=== PATIENT | male | born 1960 | race Caucasian/White ===

== ENCOUNTER 2019-02-14 08:55 | Outpatient (CLI) | payer OTHER, SELFPAY ==
--- NOTE | 2019-02-14 11:31 | CT ---
HEAD CT WITH AND WITHOUT CONTRAST: Date: 02/14/19 COMPARISON: None. HISTORY: Right renal cancer with metastatic disease to the lungs. TECHNIQUE: Axial CT imaging obtained at 5 mm intervals from the vertex through the skull base with and without I V contrast. FINDINGS: The imaged paranasal sinuses and mastoid air cells are well aerated. There is no displaced calvarial fracture. No suspicious lytic or blastic bone lesion is evident. Noncontrast enhanced imaging demonstrates no intracranial hemorrhage, midline shift, or mass effect. There is multifocal periventricular, deep, and subcortical white matter hypodensity, which suggests s mall vessel disease. Postcontrast imaging demonstrates no evidence for abnormal enhancement. IMPRESSION: Small vessel disease. No evidence for intracranial hemorrhage or enhancing mass lesion. POS: OFF
[2019-02-14] MEDS ORDERED: Iopamidol 370 76% 100 ML VIAL ONE (12:46)
--- NOTE | 2019-02-14 13:49 | NM ---
NUCLEAR MEDICINE BONE SCAN WHOLE BODY: (Skeletal scintigraphy) DATE: 02/14/2019 HISTORY: 58-year-old male with renal cell carcinoma. TECHNIQUE: IV injection of technetium 99m-MDP: 32 mCi 3 hour delayed whole body skeletal scintigraphy in anterior and posterior views. FINDINGS: There are no foci of asymmetrically increased uptake that are particularly suspicious for bone metast ases. IMPRESSION: No compelling evidence of skeletal metastasis.
== END 2019-02-14 08:56 | disposition home or self-care (01) ==
LOC: CT 08:55
PROVIDERS: ATTEND Internal Medicine Hematology & Oncology
DX: C64.1 Malignant neoplasm of right kidney, except renal pelvis (principal); R91.1 Solitary pulmonary nodule; G93.89 Other specified disorders of brain
CPT/HCPCS: 70470; 78306; 82565; A9503

== ENCOUNTER 2019-03-17 12:55 | Day surgery (SDC) | payer OTHER ==
[~2019-03-17 12:55] MED LIST: Pembrolizumab 200 MG in Sodium Chloride 0.9% 250 ML 250 ML IV SCH
[2019-03-17 15:02] VITALS: BP 131/78; TEMP 97.8
== END 2019-03-17 15:10 | disposition home or self-care (01) ==
LOC: ONC/OP 12:55
PROVIDERS: ATTEND Internal Medicine Hematology & Oncology
DX: Z51.11 Encounter for antineoplastic chemotherapy (principal); C64.1 Malignant neoplasm of right kidney, except renal pelvis
CPT/HCPCS: 96413; J7050; J9271

== ENCOUNTER 2019-04-07 12:51 | Day surgery (SDC) | payer OTHER ==
[2019-04-07] MEDS ORDERED: Sodium Chloride 0.9% 20 ML ONE (13:07)
[2019-04-07 13:30] VITALS: BP 146/74
== END 2019-04-07 14:58 | disposition home or self-care (01) ==
LOC: ONC/OP 12:51
PROVIDERS: ATTEND Internal Medicine Hematology & Oncology
DX: Z51.12 Encounter for antineoplastic immunotherapy (principal); C64.1 Malignant neoplasm of right kidney, except renal pelvis
CPT/HCPCS: 96413

== ENCOUNTER 2019-04-28 10:22 | Day surgery (SDC) | payer OTHER ==
[2019-04-28] MEDS ORDERED: Sodium Chloride 0.9% 20 ML ONE (10:28)
[2019-04-28 10:36] VITALS: BP 164/91; TEMP 97.9
== END 2019-04-28 11:52 | disposition home or self-care (01) ==
LOC: ONC/OP 10:22
PROVIDERS: ATTEND Internal Medicine Hematology & Oncology
DX: Z51.12 Encounter for antineoplastic immunotherapy (principal); C64.1 Malignant neoplasm of right kidney, except renal pelvis
CPT/HCPCS: 96413

== ENCOUNTER 2019-05-19 11:17 | Day surgery (SDC) | payer OTHER ==
[2019-05-19] MEDS ORDERED: Sodium Chloride 0.9% 20 ML ONE (13:12)
== END 2019-05-19 13:14 | disposition home or self-care (01) ==
LOC: ONC/OP 11:17
PROVIDERS: ATTEND Internal Medicine Hematology & Oncology
DX: Z51.12 Encounter for antineoplastic immunotherapy (principal); C64.1 Malignant neoplasm of right kidney, except renal pelvis
CPT/HCPCS: 96413

== ENCOUNTER 2019-06-13 10:41 | Day surgery (SDC) | payer OTHER ==
[2019-06-13 11:06] VITALS: BP 160/94; TEMP 97.9
== END 2019-06-13 11:50 | disposition home or self-care (01) ==
LOC: ONC/OP 10:41
PROVIDERS: ATTEND Internal Medicine Hematology & Oncology
DX: Z51.12 Encounter for antineoplastic immunotherapy (principal); C64.1 Malignant neoplasm of right kidney, except renal pelvis
CPT/HCPCS: 96413

== ENCOUNTER 2019-06-30 07:59 | Outpatient (CLI) | payer OTHER ==
--- NOTE | 2019-06-30 09:45 | CT ---
EXAM: CT of the chest with contrast CT of the abdomen and pelvis with contrast HISTORY: Renal cell cancer with metastases to the lungs COMPARISON: 01/21/2019 TECHNIQUE: 1. Multiple contiguous axial images were obtained in a CT the chest with contrast. Coronal and sagitt al reformats were performed. 2. Multiple contiguous axial images were obtained and a CT of the abdomen and pelvis with contrast. C oronal and sagittal reformats were performed. FINDINGS: CT CHEST: HEART: Normal in size without focal cardiac abnormality. Calcifications in the coronary arteries. MEDIASTINUM: No hilar or mediastinal lymphadenopathy. LUNGS: No focal infiltrates, nodules, or masses. PLEURAL SPACE: No pneumothorax or pleural effusion. CHEST WALL SOFT TISSUES: Unremarkable CT ABDOMEN/PELVIS: ABDOMEN: LIVER: within normal limits. BILE DUCTS: Normal caliber. GALLBLADDER: No calcified gallstones. Normal caliber wall. PANCREAS: within normal limits. SPLEEN: within normal limits. ADRENALS: within normal limits. KIDNEYS: There is 11.4 cm mixed solid/cystic renal mass involving the lower pole the right kidney. Th is mass is smaller than on the prior examination and is more cystic than on the prior examination. No thrombus is seen in the right renal vein. This mass abuts the right psoas muscle and there is loss of fat plane between the mass and the psoas muscle. There are minimal varices along the medial and inferior aspect of the mass. These have significantly improved compared to the prior examination. PELVIS: REPRODUCTIVE ORGANS: No pelvic masses. URETERS: within normal limits. BLADDER: within normal limits. PERITONEUM: No ascites or free air, no fluid collection. BOWEL: Normal caliber. Normal appendix. Scattered diverticula in the colon. MESENTERY AND RETROPERITONEUM: No enlarged mesenteric or retroperitoneal lymph nodes. VESSELS: Atherosclerotic calcifications. ABDOMINAL WALL: within normal limits. OSSEOUS STRUCTURES: Degenerative changes in the spine. No suspicious lytic lesions are seen. IMPRESSION: 1. Large right renal mass is consistent with a renal cell carcinoma. This appears smaller and more cy stic than on the prior examination and the varices surrounding the mass have significantly improved. 2. Diverticulosis 3. Resolution of pulmonary nodules.
[2019-06-30] MEDS ORDERED: Iopamidol-370 76% 500 ML 1 ML ONE (13:12)
== END 2019-06-30 08:00 | disposition home or self-care (01) ==
LOC: BICCT 07:59
PROVIDERS: ATTEND Internal Medicine Hematology & Oncology
DX: C64.1 Malignant neoplasm of right kidney, except renal pelvis (principal); N28.89 Other specified disorders of kidney and ureter; K57.30 Diverticulosis of large intestine without perforation or abscess without bleeding; R91.8 Other nonspecific abnormal finding of lung field; I86.8 Varicose veins of other specified sites
CPT/HCPCS: 71260; 74177; Q9967

== ENCOUNTER 2019-07-07 12:44 | Day surgery (SDC) | payer OTHER ==
[2019-07-07] MEDS ORDERED: Sodium Chloride 0.9% 20 ML ONE (12:47)
[2019-07-07 14:08] VITALS: BP 144/89; TEMP 97.8
== END 2019-07-07 14:11 | disposition home or self-care (01) ==
LOC: ONC/OP 12:44
PROVIDERS: ATTEND Internal Medicine Hematology & Oncology
DX: Z51.12 Encounter for antineoplastic immunotherapy (principal); C64.1 Malignant neoplasm of right kidney, except renal pelvis
CPT/HCPCS: 96413

== ENCOUNTER 2019-07-28 12:53 | Day surgery (SDC) | payer OTHER ==
[2019-07-28 14:23] VITALS: BP 149/83; TEMP 97.5
== END 2019-07-28 14:58 | disposition home or self-care (01) ==
LOC: ONC/OP 12:53
PROVIDERS: ATTEND Internal Medicine Hematology & Oncology
DX: Z51.12 Encounter for antineoplastic immunotherapy (principal); C64.1 Malignant neoplasm of right kidney, except renal pelvis
CPT/HCPCS: 96413

== ENCOUNTER 2019-07-29 06:07 | Outpatient (CLI) | payer SELFPAY ==
--- NOTE | 2019-07-29 17:05 | EKG ---
Test Reason : Blood Pressure : / mmHG Vent. Rate : 067 BPM Atrial Rate : 067 BPM P-R Int : 160 ms QRS Dur : 104 ms QT Int : 384 ms P-R-T Axes : 055 048 046 degrees QTc Int : 405 ms Normal sinus rhythm Possible Anterior infarct , age undetermined Abnormal ECG When compared with ECG of 20-NOV-2005 14:57, Borderline criteria for Anterior infarct are now Present Non-specific change in ST segment in Inferior leads Confirmed by DR. Sly VALLECILLO (3) on 07/29/2019 5:04:43 PM Referred By: KRYSTIAN Confirmed By:DR. Sly VALLECILLO
== END 2019-07-29 06:08 | disposition home or self-care (01) ==
LOC: LABBT 06:07
PROVIDERS: ATTEND Urology
DX: Z01.818 Encounter for other preprocedural examination (principal); D49.511 Neoplasm of unspecified behavior of right kidney
CPT/HCPCS: 93005; 93010

== ENCOUNTER 2019-07-29 09:00 | Inpatient (IN) | payer OTHER, SELFPAY ==
[2019-07-29 09:48] VITALS: BMI 26.6
[2019-07-29 10:31] LABS: Mean Corpuscular HGB CONC 35.5 g/dL (32.0-36.0); Mean Corpuscular Hemoglobin 31.8 pg (27.0-31.0); Mean Corpuscular Volume 89.4 fL (78.0-98.0); Mean Platelet Volume 6.6 fL (7.4-10.4); Platelet Count 245 thou/uL (130-400); RBC Distribution Width 12.8 % (11.5-14.5); Red Blood Cell (RBC) Count 5.66 mill/uL (4.70-6.10); White Blood Cell (WBC) Count 5.8 thou/uL (4.8-10.8)
[2019-07-29 10:38] LABS: INR-International Normal Ratio 0.9; PTT 24.8 SEC (22.9-36.1); Prothrombin Time 12.1 SEC (12.0-14.7)
[2019-07-29 10:41] LABS: Bacteria/HPF None Seen HPF (None Seen); Bilirubin Negative (Negative); Blood, Urine Negative (Negative); Clarity Clear (Clear); Glucose, Urine (Dipstick) 70 mg/dL (Negative); Leukocyte Negative Leu/uL (Negative); Nitrite Negative (Negative); Protein, Urine (Dipstick) Negative (Neg-Trace); RBC/HPF 0-3 HPF (0-3); Squamous Epithelial None Seen HPF (0-3); Urobilinogen Normal mg/dL (Less than 2); WBC/HPF None Seen HPF (0-3)
[2019-07-29 10:52] LABS: Anion Gap 13 mmol/L (10-20); BUN (Urea Nitrogen) 16 mg/dL (8.4-25.7); Calc. Creatinine Clearance 0 mL/min (70-130); Calcium 10.4 mg/dL (7.8-10.44); Carbon Dioxide 31 mmol/L (23-31); Chloride 97 mmol/L (98-107); Estimated GFR-MDRD 69; Glucose 117 mg/dL (80-115); Potassium 4.5 mmol/L (3.5-5.1); Sodium 136 mmol/L (136-145)
[2019-08-05] MEDS ORDERED: Midazolam HCl 2 mg/2 ml Vial ONE (06:32)
[2019-08-05] MEDS ORDERED: Fentanyl 100 MCG/2 ML VIAL ONE ×3 (06:33→10:30)
[2019-08-05] MEDS ORDERED: Acetaminophen 325 MG TAB PO PRN (07:26)
[2019-08-05] MEDS ORDERED: diphenhydrAMINE 25 MG CAP PO PRN ×2 (07:30→08:57)
[2019-08-05] MEDS ORDERED: HYDROcodone/Acetaminophen 5/325 mg Tablet PO PRN ×2 (07:30)
[2019-08-05] MEDS ORDERED: Promethazine HCl 25 MG/ML VIAL IM PRN ×4 (07:30→17:08)
[2019-08-05] MEDS ORDERED: Bupivacaine 0.25% 10 ML VIAL EPIDURAL PRN ×2 (07:30→08:57)
[2019-08-05] MEDS ORDERED: diphenhydrAMINE 50 MG/ML VIAL IVP PRN ×4 (07:30→17:08)
[2019-08-05] MEDS ORDERED: fentaNYL Citrate/PF 500 MCG, Bupivacaine 10 ML in Sodium Chloride 0.9% 80 ML EPIDURAL SCH (07:30)
[2019-08-05] MEDS ORDERED: Zolpidem Tartrate 5 MG TAB PO PRN ×4 (07:30→17:08)
[2019-08-05] MEDS ORDERED: Hydrocerin (Eucerin) Cream 120 gm Jar TOP PRN (07:30)
[2019-08-05] MEDS ORDERED: Promethazine HCl 25 MG SUPP PR PRN ×2 (07:30→08:57)
[2019-08-05] MEDS ORDERED: Naloxone HCl 0.4 mg/ml Vial IV PRN ×2 (07:30→17:08)
[2019-08-05] MEDS ORDERED: Ondansetron PF 4 MG/2 ML Vial IVP PRN ×3 (07:30→17:08)
[2019-08-05] MEDS ORDERED: diphenhydrAMINE 50 MG/ML VIAL IM PRN ×3 (07:30→17:08)
[2019-08-05] MEDS ORDERED: Ketorolac Tromethamine 30 MG/ML VIAL IVP PRN ×2 (07:30)
[2019-08-05] MEDS ORDERED: traMADol HCl 50 MG TAB PO PRN ×2 (07:30)
[2019-08-05] MEDS ORDERED: Naloxone HCl 0.4 mg/ml Vial IVP PRN ×3 (07:30→08:57)
[2019-08-05] MEDS ORDERED: Phenylephrine 10 MG/ML VIAL ONE (07:40)
[2019-08-05] MEDS ORDERED: HYDROmorphone 2 MG/ML VIAL ONE (08:32)
[2019-08-05] MEDS ORDERED: HYDROmorphone 2 MG/ML VIAL SLOW IVP PRN (08:56)
[2019-08-05] MEDS ORDERED: Promethazine HCl 25 MG/ML VIAL SLOW IVP PRN (08:56)
[2019-08-05] MEDS ORDERED: Meperidine HCl/PF 25 MG/ML VIAL SLOW IVP PRN (08:56)
[2019-08-05] MEDS ORDERED: Ondansetron HCl/PF 4 MG/2 ML Vial IVP PRN (08:56)
[2019-08-05] MEDS ORDERED: Fentanyl 5 mcg/Bupivacaine 0.075% Cassette 100 ML EPIDURAL SCH (09:00)
[2019-08-05] MEDS ORDERED: Communication Order-Pharmacy FS SCH ×3 (09:00→17:15)
[2019-08-05] MEDS ORDERED: Promethazine HCl 25 MG/ML VIAL ONE (10:36)
[2019-08-05] MEDS ORDERED: Ondansetron PF 4 MG/2 ML Vial ONE (10:41)
[2019-08-05] MEDS ORDERED: Lidocaine 1.5% w/Epi 1:200K 30 ML VIAL (Epid Use) ONE (10:41)
[2019-08-05] MEDS ORDERED: PROPOFOL 200 MG/20 ML VIAL ONE (10:41)
[2019-08-05] MEDS ORDERED: Rocuronium Bromide 10 MG/ML (10ML VIAL) ONE (10:41)
[2019-08-05] MEDS ORDERED: Glycopyrrolate 0.2 MG/ML 5 ML SYRINGE ONE (10:41)
[2019-08-05] MEDS ORDERED: Esmolol 100 MG/10 ML VIAL ONE (10:41)
[2019-08-05] MEDS ORDERED: Lidocaine 1% PF 5 ML VIAL ONE (10:41)
--- NOTE | 2019-08-05 10:43 | OP ---
DATE OF PROCEDURE: 08/05/2019 PREOPERATIVE DIAGNOSIS: Right renal mass. POSTOPERATIVE DIAGNOSIS: Right renal mass. PROCEDURE PERFORMED: Right radical nephrectomy. EDUCATION ADVISER SURGEON: Morgan San MD ANESTHESIA: General, epidural. ESTIMATED BLOOD LOSS: 500 mL. COMPLICATIONS: None. SPECIMEN: Right kidney with Gerota's fascia. DESCRIPTION OF PROCEDURE: After informed consent, the patient was taken to the operating room, transferred to the table on his own power. Anesthesia was established. A time-out was performed showing the correct patient, site, and procedure. Preoperative antibiotics were administered. Imaging was pulled up on the monitor. He was prepped and draped in the supine position. A midline incision was made from about 2 inches below the xiphoid process, 2 inches above the pubic symphysis. This was carried down to fascia with electrocautery. The fascia was then carefully entered and opened for the length of the incision. The abdominal cavity was inspected noting no obvious abnormalities and no injuries to organs. The line of Toldt was taken down on the right side and the small and large bowel deflected medially. The Bookwalter was deployed to assist with deflection. The lower pole of the right kidney was identified and isolated. The posterior plane along the psoas muscle was developed and then the ligature was used to come across the gonadal vein and ureter. The patient also had several large parasitic vessels, which were controlled with the LigaSure device. At this point, the lower pole was free. I then turned my attention to the renal hilum and carefully kocherized the duodenum. I was able to identify the renal pelvis and dissected bluntly behind this. At this point, it became necessary to dissect the lateral and superior aspects of the kidney and Gerota's was opened allowing for mobilization. I was then able to pass my fingers around the renal hilum. This was then controlled with a single 60 mm vascular load. Two more loads were used to come across the superior medial connections of the kidney. The LigaSure was then used to completely free up the kidney, which was passed off as specimen. The renal bed was then inspected noting no active bleeding. The cavity was irrigated. The Bookwalter was then taken down and the bowel replaced carefully. The fascia was closed in a running fashion with 2-0 PDS suture. Skin was closed with prince and an island dressing placed. The patient was then awoken from anesthesia, transferred back to his hospital bed and taken to PACU in stable condition, where he will be admitted to the floor. Job ID: [id number] MTDD
[2019-08-05] MEDS ORDERED: Ketorolac Tromethamine 30 MG/ML VIAL IVP SCH ×2 (12:00)
[2019-08-05] MEDS ORDERED: hydrALAZINE 20 MG/ML VIAL SLOW IVP PRN (12:37)
[2019-08-05] MEDS ORDERED: ALPRAZolam 0.5 MG TAB PO PRN (12:37)
[2019-08-05] MEDS ORDERED: Docusate 100 MG CAP PO SCH (13:00)
[2019-08-05] MEDS ORDERED: Famotidine/PF 20 mg/2ml Vial SLOW IVP SCH (13:00)
[2019-08-05] MEDS ORDERED: Escitalopram Oxalate 20 mg Tablet PO SCH (13:00)
[2019-08-05 13:20] LABS: #Lymphocytes 2.6 thou/uL (1.20-3.40); #Monocytes 1.2 thou/uL (0.11-0.59); #Neutrophils 14.4 thou/uL (1.40-6.50); %Basophils 0.2 % (0.0-1.0); %Eosinophils 0.2 % (0.0-10.0); %Lymphocytes 14.1 % (21.0-51.0); %Monocytes 6.7 % (0.0-10.0); %Neutrophils 78.8 % (42.0-75.0); Hemoglobin 13.1 g/dL (14.0-18.0); Mean Corpuscular HGB CONC 34.8 g/dL (32.0-36.0); Mean Corpuscular Hemoglobin 31.9 pg (27.0-31.0); Mean Corpuscular Volume 91.6 fL (78.0-98.0); Mean Platelet Volume 6.7 fL (7.4-10.4); Platelet Count 247 thou/uL (130-400); RBC Distribution Width 12.6 % (11.5-14.5); White Blood Cell (WBC) Count 18.3 thou/uL (4.8-10.8)
[2019-08-05 13:40] LABS: Anion Gap 11 mmol/L (10-20); BUN (Urea Nitrogen) 14 mg/dL (8.4-25.7); Calc. Creatinine Clearance 75 mL/min (70-130); Calcium 7.7 mg/dL (7.8-10.44); Carbon Dioxide 26 mmol/L (23-31); Chloride 105 mmol/L (98-107); Estimated GFR-MDRD 62; Glucose 151 mg/dL (80-115); Sodium 138 mmol/L (136-145)
[2019-08-05] MEDS: Sodium Chloride 0.9% 1,000 ML IV SCH ×2 (13:57→22:42)
[2019-08-05] MEDS ORDERED: Famotidine/PF 20 mg/2ml Vial ONE (13:58)
[2019-08-05] MEDS ORDERED: EPINEPHrine 1 MG/10 ML Abboject SYRINGE ONE (15:54)
[2019-08-05] MEDS ORDERED: EPHEDRINE 25 MG/5 ML SYRINGE ONE (15:55)
[2019-08-05] MEDS ORDERED: PHENYLEPHRINE-NS 100 MCG/ML 10 ML SYRINGE ONE (16:22)
[2019-08-05] MEDS ORDERED: HYDROmorphone 10 mg/100 ml CADD IVPB PRN (17:08)
[2019-08-05] MEDS: Famotidine/PF 20 mg/2ml Vial SLOW IVP SCH (22:44)
[2019-08-05] MEDS: Docusate 100 MG CAP PO SCH (22:44)
[2019-08-06 06:28] LABS: Hemoglobin 10.9 g/dL (14.0-18.0); Mean Corpuscular HGB CONC 33.7 g/dL (32.0-36.0); Mean Corpuscular Hemoglobin 31.2 pg (27.0-31.0); Mean Corpuscular Volume 92.6 fL (78.0-98.0); Mean Platelet Volume 6.7 fL (7.4-10.4); Platelet Count 176 thou/uL (130-400); RBC Distribution Width 12.8 % (11.5-14.5); Red Blood Cell (RBC) Count 3.47 mill/uL (4.70-6.10); White Blood Cell (WBC) Count 7.3 thou/uL (4.8-10.8)
[2019-08-06 06:29] LABS: #Lymphocytes 1.3 thou/uL (1.20-3.40); #Monocytes 0.7 thou/uL (0.11-0.59); #Neutrophils 5.2 thou/uL (1.40-6.50); %Basophils 0.1 % (0.0-1.0); %Eosinophils 0.5 % (0.0-10.0); %Lymphocytes 18.3 % (21.0-51.0); %Neutrophils 71.1 % (42.0-75.0)
[2019-08-06 06:33] LABS: Anion Gap 11 mmol/L (10-20); BUN (Urea Nitrogen) 16 mg/dL (8.4-25.7); Calc. Creatinine Clearance 62 mL/min (70-130); Calcium 7.1 mg/dL (7.8-10.44); Carbon Dioxide 26 mmol/L (23-31); Chloride 100 mmol/L (98-107); Estimated GFR-MDRD 50; Glucose 157 mg/dL (80-115); Potassium 4.5 mmol/L (3.5-5.1); Sodium 132 mmol/L (136-145)
[2019-08-06] MEDS: Famotidine/PF 20 mg/2ml Vial SLOW IVP SCH ×2 (08:34→20:29)
[2019-08-06] MEDS: Escitalopram Oxalate 20 mg Tablet PO SCH (08:35)
[2019-08-06] MEDS: Sodium Chloride 0.9% 1,000 ML IV SCH ×3 (08:36→15:37)
[2019-08-06] MEDS: Docusate 100 MG CAP PO SCH ×2 (08:36→20:29)
[2019-08-06] MEDS ORDERED: Calcium Chloride 1 GM/10 ML Abboject SYRINGE IVP SCH (08:45)
[2019-08-06] MEDS ORDERED: Enoxaparin Sodium 40 MG/0.4 ML SYRINGE SC SCH (09:00)
--- NOTE | 2019-08-06 09:08 | PRG ---
DATE OF SERVICE: 08/06/2019 SUBJECTIVE: The patient has been experiencing significant pain overnight. His epidural had to be discontinued overnight secondary to hypotension. Hypotension resolved after this, however, the COORD[employer] has been poorly controlling his pain. He is not able to take deep breaths or find a comfortable position in bed. He denies headaches, chest pains, or fevers. Tachycardic overnight. Blood pressure stable. Oxygen saturation mid 90s on room air. Afebrile. Urine output 475. IV fluids 1200 overnight. The patient appears uncomfortable, unlabored breathing, although his chest expansion is limited secondary to abdominal pain. OBJECTIVE: HEART: Regular rate and rhythm. ABDOMEN: Tense secondary to pain, nondistended. Midline incision still covered with gauze with minimal blood. SKIN: Warm and dry. EXTREMITIES: Without clubbing, cyanosis, or edema. LABORATORY FINDINGS: Hemoglobin 10.9 down from check last night, likely dilutional. Creatinine 1.4. ASSESSMENT AND PLAN: Postop day #1, right cytoreductive nephrectomy. I have contacted the Pain Service to adjust his [employer] as he is not able to control his pain at all currently. Lovenox ordered, SCDs are in place, but are not on as the machine seems to be malfunctioning, this will need to be addressed. I have contacted his nurse to do so. Incentive spirometry is at bedside. Repeat labs ordered for this afternoon. Calcium being replaced. Job ID: [id number]
[2019-08-06] MEDS ORDERED: HYDROmorphone 10 mg/100 ml CADD IVPB PRN (09:54)
[2019-08-06] MEDS ORDERED: ALPRAZolam 0.5 MG TAB PO PRN (09:56)
[2019-08-06] MEDS: Acetaminophen 500 MG TAB PO SCH ×3 (10:45→21:21)
[2019-08-06 13:04] LABS: Hemoglobin 10.6 g/dL (14.0-18.0); Mean Corpuscular HGB CONC 34.7 g/dL (32.0-36.0); Mean Corpuscular Hemoglobin 32.2 pg (27.0-31.0); Mean Corpuscular Volume 92.8 fL (78.0-98.0); Platelet Count 158 thou/uL (130-400); RBC Distribution Width 12.6 % (11.5-14.5); White Blood Cell (WBC) Count 6.2 thou/uL (4.8-10.8)
[2019-08-06 13:24] LABS: Anion Gap 11 mmol/L (10-20); BUN (Urea Nitrogen) 14 mg/dL (8.4-25.7); Calc. Creatinine Clearance 62 mL/min (70-130); Calcium 7.9 mg/dL (7.8-10.44); Carbon Dioxide 26 mmol/L (23-31); Chloride 97 mmol/L (98-107); Estimated GFR-MDRD 49; Glucose 138 mg/dL (80-115); Potassium 3.8 mmol/L (3.5-5.1); Sodium 130 mmol/L (136-145)
[2019-08-06] MEDS ORDERED: fentaNYL Citrate/PF 2,000 MCG in Sodium Chloride 0.9% 60 ML IV PRN (14:01)
[2019-08-06] MEDS ORDERED: diphenhydrAMINE 50 MG/ML VIAL IVP SCH (14:15)
[2019-08-06] MEDS: traMADol HCl 50 MG TAB PO SCH ×2 (15:11→20:28)
[2019-08-06] MEDS: diphenhydrAMINE 25 MG CAP PO PRN (20:28)
[2019-08-07] MEDS: traMADol HCl 50 MG TAB PO SCH ×4 (03:04→20:23)
[2019-08-07] MEDS: Acetaminophen 500 MG TAB PO SCH ×4 (04:15→21:00)
[2019-08-07 05:29] LABS: Hemoglobin 9.7 g/dL (14.0-18.0); Mean Corpuscular Hemoglobin 31.4 pg (27.0-31.0); Mean Corpuscular Volume 92.1 fL (78.0-98.0); Mean Platelet Volume 6.2 fL (7.4-10.4); Platelet Count 141 thou/uL (130-400); RBC Distribution Width 12.4 % (11.5-14.5); Red Blood Cell (RBC) Count 3.08 mill/uL (4.70-6.10)
[2019-08-07 05:52] LABS: Anion Gap 7 mmol/L (10-20); BUN (Urea Nitrogen) 11 mg/dL (8.4-25.7); Calc. Creatinine Clearance 66 mL/min (70-130); Calcium 7.8 mg/dL (7.8-10.44); Carbon Dioxide 28 mmol/L (23-31); Chloride 98 mmol/L (98-107); Estimated GFR-MDRD 54; Glucose 144 mg/dL (80-115); Potassium 4.6 mmol/L (3.5-5.1); Sodium 128 mmol/L (136-145)
[2019-08-07] MEDS: Sodium Chloride 0.9% 1,000 ML IV SCH ×3 (08:02→21:00)
[2019-08-07] MEDS: Famotidine/PF 20 mg/2ml Vial SLOW IVP SCH ×2 (08:03→20:31)
[2019-08-07] MEDS: Docusate 100 MG CAP PO SCH ×2 (08:04→20:24)
[2019-08-07] MEDS: Escitalopram Oxalate 20 mg Tablet PO SCH (08:04)
--- NOTE | 2019-08-07 09:27 | PRG ---
DATE OF SERVICE: 08/07/2019 SUBJECTIVE: No acute events overnight. Pain control much improved with ROOF TRUSS DETAILER and oral medications. The patient has been ambulating and sitting in a chair. He is tolerating regular diet, but has not yet passed gas or had a bowel movement. He denies nausea, vomiting, fevers, chest pains. He is now off nasal cannula. OBJECTIVE: VITAL SIGNS: Afebrile, vitals stable. Urine output much improved from yesterday with increased fluids. No acute distress, conversant. HEART: Regular rate and rhythm. CHEST: Breathing unlabored, symmetric chest expansion. ABDOMEN: Much softer, mild distention, appropriately tender. SKIN: Warm and dry. Wound appears healthy with prince in place, dressing removed. EXTREMITIES: Without clubbing, cyanosis, or edema. SCDs in place and functioning. LABORATORY DATA: White count 6.0, hemoglobin 9.7, drifted down slightly from yesterday afternoon, likely due to increased fluids overnight. Creatinine 1.35 down from 1.45 yesterday. ASSESSMENT AND PLAN: 1. Postop day 2, right cytoreductive nephrectomy. 2. Continue current pain control, will transition to oral medications only as he is able. 3. Continue regular diet, anticipate bowel function today or tomorrow. 4. Dawn catheter out today. 5. Continue ambulation, SCDs, DVT prophylaxis, GI prophylaxis, incentive spirometry. 6. Disposition - anticipate that he will discharge home either tomorrow or Sunday. Job ID: [id number]
[2019-08-07] MEDS ORDERED: Enoxaparin Sodium 40 MG/0.4 ML SYRINGE SC SCH (21:00)
[2019-08-07] MEDS: diphenhydrAMINE 25 MG CAP PO PRN (23:25)
[2019-08-08] MEDS: traMADol HCl 50 MG TAB PO SCH ×2 (03:15→08:51)
[2019-08-08] MEDS: Acetaminophen 500 MG TAB PO SCH ×2 (03:25→10:01)
[2019-08-08 05:18] LABS: Hemoglobin 9.8 g/dL (14.0-18.0); Mean Corpuscular HGB CONC 33.9 g/dL (32.0-36.0); Mean Corpuscular Hemoglobin 31.1 pg (27.0-31.0); Mean Corpuscular Volume 91.8 fL (78.0-98.0); Mean Platelet Volume 6.2 fL (7.4-10.4); Platelet Count 175 thou/uL (130-400); RBC Distribution Width 12.4 % (11.5-14.5); Red Blood Cell (RBC) Count 3.15 mill/uL (4.70-6.10); White Blood Cell (WBC) Count 5.4 thou/uL (4.8-10.8)
[2019-08-08] MEDS: Sodium Chloride 0.9% 1,000 ML IV SCH (05:26)
[2019-08-08 05:43] LABS: Anion Gap 9 mmol/L (10-20); BUN (Urea Nitrogen) 13 mg/dL (8.4-25.7); Calc. Creatinine Clearance 62 mL/min (70-130); Calcium 8.5 mg/dL (7.8-10.44); Carbon Dioxide 31 mmol/L (23-31); Chloride 100 mmol/L (98-107); Estimated GFR-MDRD 49; Glucose 131 mg/dL (80-115); Sodium 136 mmol/L (136-145)
[2019-08-08 07:15] VITALS: BP 159/87; TEMP 97.7
[2019-08-08] MEDS: Escitalopram Oxalate 20 mg Tablet PO SCH (08:50)
[2019-08-08] MEDS: Docusate 100 MG CAP PO SCH (08:50)
[2019-08-08] MEDS: Famotidine/PF 20 mg/2ml Vial SLOW IVP SCH (08:50)
--- NOTE | 2019-08-09 02:58 | DIS ---
DATE OF ADMISSION: 08/05/2019 DATE OF DISCHARGE: 08/08/2019 CHIEF COMPLAINT: Right renal mass. POSTOPERATIVE DIAGNOSES: 1. Metastatic renal cell carcinoma. 2. Diabetes. CONSULTATIONS: Anesthesia Pain service. HOSPITAL COURSE: The patient underwent a right cytoreductive nephrectomy through a midline incision. There were no surgical complications. Postoperatively, he was initially managed with an epidural. However, this caused significant hypotension, and so this was stopped overnight after his surgery and he was transitioned to a CPHT. He had severe pain on the morning of postop day 1; however, adjusting his CPHT, his pain was much better controlled by that afternoon. The following day, he was transitioned off the CPHT and was ambulating. Postop day 3, the patient was dressed for home, ambulating, tolerating diet, passing gas, having minimal discomfort, and ready for discharge home. DISCHARGE PHYSICAL EXAMINATION: GENERAL: No acute distress. Unlabored breathing. HEART: Regular rate and rhythm. ABDOMEN: Soft, appropriately tender, nondistended, good bowel sounds. SKIN: Warm and dry. LABORATORY DATA: Lab Work: Hemoglobin stable, creatinine 1.45. DISCHARGE ACTIVITY: Light nonstressful activities as tolerated. DISPOSITION: Home. CONDITION: Stable. PLAN: Follow up around postop day 10 to 14 for staple removal. PRIMARY CARE PHYSICIAN: Dr. Randy Morrison. Job ID: [id number]
--- NOTE | 2019-08-11 03:44 | PQF ---
JOSE M Jacinto [id number] CLINICAL DOCUMENTATION CLARIFICATION FORM: POST DISCHARGE Addendum to original discharge summary date: ____ Late entry note date: __ DATE: 08/11/2019 ATTN:Jose M Villa Please exercise your independent, professional judgment in responding to the clarification form. Clinical indicators are provided on the bottom of this form for your review Please check appropriate box(s): NO DIAGNOSIS: there is no diagnosis for routine blood loss during surgery. He did develop hypotension due to his epidural. [ ] Hypovolemic Shock [ ] Hemorrhagic Shock due to trauma: [ ] Puwtn-Cfdv-hdalpyx Shock (please specify etiology) [ ] Shock Unspecified [ ] No Shock [ ] Other diagnosis [ ] Unable to determine In addition, please specify: Present on Admission (POA): [ ] Yes [ ] No [ x ] Unable to determine For continuity of documentation, please document condition throughout progress notes and discharge summary. Thank You. CLINICAL INDICATORS - SIGNS / SYMPTOMS / LABS DS 08/07 "significant hypotension" OP Note 08/04 "EBL:500ml" Labs RBC: 08/07=4.10 08/05=3.47 08/06=3.08 08/07=3.15 Labs Hgb: 08/07=13.1 08/05=10.6 08/06=9.7 08/07=9.8 Labs Hct: 08/07=37.6 08/05=30.6 08/06=28.4 08/07=28.9 Vital Signs: 08/0480=979/69 08/0500=076/70 08/0676=175/84 08/0705=637/87 RISK FACTORS HP 08/04-63 years old male HP 08/04-DM HP 08/04-HTN OP Note 08/04-s/p radical nephrectomy DS 08/07-Renal cell carcinoma TREATMENTS: Epinephrine 1mg IV-AUG 04 IVF-AUG 04 (This form is maintained as a part of the permanent medical record) 2014 [address], [place]. All Rights Reserved [email or web address]
--- NOTE | 2019-08-11 21:45 | PQF ---
Darryl VILLAGETACHEW [id number] CLINICAL DOCUMENTATION CLARIFICATION FORM: POST DISCHARGE Addendum to original discharge summary date: ____ Late entry note date: __ DATE: 08/11/2019 ATTN: Getachew Villa Please exercise your independent, professional judgment in responding to the clarification form. Clinical indicators are provided on the bottom of this form for your review Please check appropriate box(s): [ ] Associated Diagnosis: Acute blood loss anemia [x ] Not Clinically significant laboratory findings [ ] Other diagnosis [ ] Unable to determine In addition, please specify: Present on Admission (POA): [ ] Yes [ x ] No [ ] Unable to determine For continuity of documentation, please document condition throughout progress notes and discharge summary. Thank You. CLINICAL INDICATORS - SIGNS / SYMPTOMS/ LABS are present in the medical record: DS 08/07 "significant hypotension" OP Note 08/04 "EBL:500ml" Labs RBC: 08/07=4.10 08/05=3.47 08/06=3.08 08/07=3.15 Labs Hgb: 08/07=13.1 08/05=10.6 08/06=9.7 08/07=9.8 Labs Hct: 08/07=37.6 08/05=30.6 08/06=28.4 08/07=28.9 RISK FACTORS HP 08/04-63 years old male HP 08/04-DM HP 08/04-HTN OP Note 08/04-s/p radical nephrectomy DS 08/07-Renal cell carcinoma TREATMENT Epinephrine 1mg IV-AUG 04 IVF-AUG 04 Laboratory Monitoring-Collected 08/04 (This form is maintained as a part of the permanent medical record) 2014 [employer] All Rights Reserved [email or web address] [phone] [email or web address]
== END 2019-08-08 10:28 | disposition home or self-care (01) | DRG 658 ==
LOC: SURG A 08-05 05:50 → EDSTATUS 08-05 09:00 → SURG B 08-05 22:03
PROVIDERS: ADMIT Urology; ATTEND Urology
PROC: 0TB00ZZ Excision of Right Kidney, Open Approach (ICD-10-PCS; principal; 2019-08-05)
PROC: 3E033XZ Introduction of Vasopressor into Peripheral Vein, Percutaneous Approach (ICD-10-PCS; 2019-08-05)
DX: C64.1 Malignant neoplasm of right kidney, except renal pelvis (principal); F41.9 Anxiety disorder, unspecified; E11.9 Type 2 diabetes mellitus without complications; I10 Essential (primary) hypertension; I95.81 Postprocedural hypotension; Z79.84 Long term (current) use of oral hypoglycemic drugs; Z79.899 Other long term (current) drug therapy
CPT/HCPCS: 36415; 36416; 80048; 81001; 85025; 85027; 85610; 85730; 86850; 86900; 86901; 87086; 88307; J0171; J0690; J1170; J1200; J1650; J2001; J2250; J2370; J2405; J2550; J2704; J3010; J3490; Q0163; S0028

== ENCOUNTER 2019-08-25 12:39 | Day surgery (SDC) | payer OTHER ==
[2019-08-25] MEDS ORDERED: Sodium Chloride 0.9% 20 ML ONE (12:43)
[2019-08-25 12:51] VITALS: BP 152/84; TEMP 98.2
== END 2019-08-25 14:07 | disposition home or self-care (01) ==
LOC: ONC/OP 12:39
PROVIDERS: ATTEND Internal Medicine Hematology & Oncology
DX: Z51.12 Encounter for antineoplastic immunotherapy (principal); C64.1 Malignant neoplasm of right kidney, except renal pelvis
CPT/HCPCS: 96413

== ENCOUNTER 2019-09-15 09:42 | Day surgery (SDC) | payer SELFPAY ==
[2019-09-15] MEDS ORDERED: Sodium Chloride 0.9% 20 ML ONE (09:52)
[2019-09-15 10:55] VITALS: BP 141/89; TEMP 97.7
== END 2019-09-15 10:55 | disposition home or self-care (01) ==
LOC: ONC/OP 09:42
PROVIDERS: ATTEND Internal Medicine Hematology & Oncology
DX: Z51.12 Encounter for antineoplastic immunotherapy (principal); C64.1 Malignant neoplasm of right kidney, except renal pelvis
CPT/HCPCS: 96413

== ENCOUNTER 2019-10-06 09:11 | Day surgery (SDC) | payer OTHER, SELFPAY ==
[2019-10-06] MEDS ORDERED: Sodium Chloride 0.9% 20 ML ONE (09:16)
[2019-10-06 09:23] VITALS: BP 153/87; TEMP 98.1
== END 2019-10-06 11:41 | disposition home or self-care (01) ==
LOC: ONC/OP 09:11
PROVIDERS: ATTEND Internal Medicine Hematology & Oncology
DX: Z51.12 Encounter for antineoplastic immunotherapy (principal); C64.1 Malignant neoplasm of right kidney, except renal pelvis
CPT/HCPCS: 96413

== ENCOUNTER 2019-10-28 12:17 | Day surgery (SDC) | payer OTHER ==
[2019-10-28] MEDS ORDERED: Sodium Chloride 0.9% 20 ML ONE (12:28)
[2019-10-28 12:41] VITALS: BP 132/90; TEMP 97.9
== END 2019-10-28 13:14 | disposition home or self-care (01) ==
LOC: ONC/OP 12:17
PROVIDERS: ATTEND Internal Medicine Hematology & Oncology
DX: Z51.12 Encounter for antineoplastic immunotherapy (principal); C64.1 Malignant neoplasm of right kidney, except renal pelvis
CPT/HCPCS: 96413

== ENCOUNTER 2019-11-13 07:32 | Outpatient (CLI) | payer OTHER, SELFPAY ==
--- NOTE | 2019-11-13 08:52 | CT ---
CT chest noncontrast CT abdomen noncontrast HISTORY: Right renal neoplasm. Restaging. COMPARISON: 06/30/1999 FINDINGS: Prominent calcification within the coronary arteries. There is a tiny pleural thickening fo cus within the posterior lateral aspect of the minor fissure on the right. Not suspicious. No new lung mass or mediastinal adenopathy evident, allowing for lack of IV contrast with was withhel d because of renal insufficiency. A large wedge-shaped area of subtly decreased density within the anterior segment right liver lobe is favored to represent diffuse fatty infiltration. Dystrophic calcification is now associated with right adrenal gland. The right kidney is surgically a bsent. At the right renal fossa, a heterogeneous lobular predominantly soft tissue density mass measures up to 5.4 cm length by 5.3 cm depth by 5.5 cm width. The inferior and medial margins are camille ewhat ill-defined. The lateral margin is more well-defined and indents the inferior medial aspect of the liver. No retroperitoneal adenopathy is apparent. Oral contrast was administered. No evidence of bowel obstruction. Diverticula arise from the partiall y visualized colon without adjacent inflammation. Posterior disc bulge is evident at the L4-5 level lumbar spine. Degenerative changes are also present throughout the thoracolumbar spine. IMPRESSION : Interval right nephrectomy. The heterogeneous mass like lesion at the postoperative bed/right renal f brian is favored to represent residual/resolving hematoma given that the original renal neoplasm was at the inferior pole. Residual neoplasm favored to be less likely. The lesion could be followed on CT exam. Further/more immediate evaluation could include PET scan or contrast-enhanced CT/MRI. No evidence of distant metastasis. Regional hepato-steatosis. Atherosclerosis.
== END 2019-11-13 07:33 | disposition home or self-care (01) ==
LOC: BICCT 07:32
PROVIDERS: ATTEND Internal Medicine Hematology & Oncology
DX: C64.1 Malignant neoplasm of right kidney, except renal pelvis (principal); I70.90 Unspecified atherosclerosis; K76.0 Fatty (change of) liver, not elsewhere classified; Z90.5 Acquired absence of kidney
CPT/HCPCS: 71250; 74150

== ENCOUNTER 2019-11-18 12:57 | Day surgery (SDC) | payer OTHER, SELFPAY ==
[2019-11-18 13:26] VITALS: BP 125/82; TEMP 97.7
[2019-11-18] MEDS ORDERED: Sodium Chloride 0.9% 20 ML ONE (14:11)
== END 2019-11-18 14:24 | disposition home or self-care (01) ==
LOC: ONC/OP 12:57
PROVIDERS: ATTEND Internal Medicine Hematology & Oncology
DX: Z51.12 Encounter for antineoplastic immunotherapy (principal); C64.1 Malignant neoplasm of right kidney, except renal pelvis
CPT/HCPCS: 96413

== ENCOUNTER 2019-12-09 08:51 | Day surgery (SDC) | payer OTHER ==
[2019-12-09 09:08] VITALS: BP 135/84; TEMP 98.5
== END 2019-12-09 10:08 | disposition home or self-care (01) ==
LOC: ONC/OP 08:51
PROVIDERS: ATTEND Internal Medicine Hematology & Oncology
DX: Z51.12 Encounter for antineoplastic immunotherapy (principal); C64.1 Malignant neoplasm of right kidney, except renal pelvis
CPT/HCPCS: 96413

== ENCOUNTER 2019-12-30 08:39 | Day surgery (SDC) | payer OTHER ==
[2019-12-30] MEDS ORDERED: Sodium Chloride 0.9% 20 ML ONE (08:48)
[2019-12-30 09:03] VITALS: BP 164/92; TEMP 98.4
== END 2019-12-30 10:24 | disposition home or self-care (01) ==
LOC: ONC/OP 08:39
PROVIDERS: ATTEND Internal Medicine Hematology & Oncology
DX: Z51.12 Encounter for antineoplastic immunotherapy (principal); C64.1 Malignant neoplasm of right kidney, except renal pelvis
CPT/HCPCS: 96413

== ENCOUNTER 2020-02-10 09:08 | Day surgery (SDC) | payer OTHER ==
[2020-02-10] MEDS ORDERED: Sodium Chloride 0.9% 20 ML ONE (09:11)
[2020-02-10 09:36] VITALS: BP 143/87; TEMP 97.9
== END 2020-02-10 10:47 | disposition home or self-care (01) ==
LOC: ONC/OP 09:08
PROVIDERS: ATTEND Internal Medicine Hematology & Oncology
DX: Z51.12 Encounter for antineoplastic immunotherapy (principal); C64.1 Malignant neoplasm of right kidney, except renal pelvis
CPT/HCPCS: 96413

== ENCOUNTER 2020-03-10 09:06 | Day surgery (SDC) | payer OTHER ==
[2020-03-10] MEDS ORDERED: Sodium Chloride 0.9% 20 ML ONE (09:09)
[2020-03-10 09:45] VITALS: BP 130/88; TEMP 98.4
== END 2020-03-10 10:46 | disposition home or self-care (01) ==
LOC: ONC/OP 09:06
PROVIDERS: ATTEND Internal Medicine Hematology & Oncology
DX: Z51.12 Encounter for antineoplastic immunotherapy (principal); C64.1 Malignant neoplasm of right kidney, except renal pelvis
CPT/HCPCS: 96413

== ENCOUNTER 2020-03-31 08:17 | Day surgery (SDC) | payer OTHER ==
[2020-03-31 09:00] VITALS: BP 163/90; TEMP 97.9
== END 2020-03-31 11:31 | disposition home or self-care (01) ==
LOC: ONC/OP 08:17
PROVIDERS: ATTEND Internal Medicine Hematology & Oncology
DX: Z51.12 Encounter for antineoplastic immunotherapy (principal); C64.1 Malignant neoplasm of right kidney, except renal pelvis
CPT/HCPCS: 96413

== ENCOUNTER 2020-04-06 12:53 | Outpatient (CLI) | payer OTHER ==
--- NOTE | 2020-04-06 15:04 | CT ---
CT THORAX NONCONTRAST CT ABOEN NONCONTRAST: 04/06/20 HISTORY: 59-year-old male with ICD-10: C64.1 malignant neoplasm of right kidney, except renal pelvis. Please compare with last study; oral contrast only! No IV contrast due to elevated creatinine. COMPARISON: CT thorax and abdomen noncontrast of 11/13/19. FINDINGS: There is a small focus of loculated fluid or pleural thickening in the right posterolateral pleural s urface, which tracks along the posterior superior aspect of the right major fissure and abuts the med ial surface of the right 6th rib. It has density that appears to be lower than soft tissue, and is th erefore favored to be fluid. It is larger than it was previously. There is no periostitis or permeati ve lesion involving the right 6th rib, or any other osseous structure on this scan. There are no susp icious pulmonary nodules. No pleural effusion or pneumothorax. No mediastinal or hilar lymphadenopath y. No cardiomegaly. Heavy atherosclerotic calcification of left main, LAD, LCX and RCA. The broad geographic region of low attenuation at anterolateral portion of liver appears similar to p revious CT probably representing asymmetrical distributed fatty infiltration. Surgical absence of right kidney. The previously described lobular mass in the right renal bed, which previously measured approximately 5.5 x 5.3 x 5.4 cm, currently measures approximately 4.0 x 4.6 x 4 .6 cm. It has a density of approximately 23 HU. The lateral portion of the mass deeply indents the me dial aspect of the right lobe of the liver. The medial aspect of the mass broadly abuts the right psoas muscle. There is no calculus in the left kidney. No left hydronephrosis. Atherosclerosis without aneurysm of the abdo megan aorta. Within the limitations of a noncontrast scan, no gross pathology identified involving the pancreas, l eft adrenal, left kidney, spleen. The visualized portions of the colon demonstrate no acute abnormali ty. Normal appendix. Several diverticula in descending colon. No small bowel dilation. No retroperito jennifer, jaye hepatis, or mesenteric lymphadenopathy. IMPRESSION: 1. No convincing evidence of intrathoracic metastatic disease. 2. Mild interval decrease in size of the right retroperitoneal mass invaginating the right lobe of the liver. This shrinkage is consistent with postoperative hematoma in the nephrectomy surgical be d rather than residual recurrent malignancy in the surgical bed. However, continued follow-up CT's ar e recommended. 3. Evidence for heterogeneous hepatic steatosis. 4. Coronary atherosclerosis due to calcified coronary lesion. POS: [facility]
== END 2020-04-06 12:54 | disposition home or self-care (01) ==
LOC: BICCT 12:53
PROVIDERS: ATTEND Internal Medicine Hematology & Oncology
DX: C64.1 Malignant neoplasm of right kidney, except renal pelvis (principal); K76.89 Other specified diseases of liver; K76.0 Fatty (change of) liver, not elsewhere classified; I25.10 Atherosclerotic heart disease of native coronary artery without angina pectoris
CPT/HCPCS: 71250; 74150

== ENCOUNTER 2020-04-21 08:14 | Day surgery (SDC) | payer OTHER ==
[2020-04-21 08:31] VITALS: BP 147/98; TEMP 98
== END 2020-04-21 11:24 | disposition home or self-care (01) ==
LOC: ONC/OP 08:14
PROVIDERS: ATTEND Internal Medicine Hematology & Oncology
DX: Z51.12 Encounter for antineoplastic immunotherapy (principal); C64.1 Malignant neoplasm of right kidney, except renal pelvis
CPT/HCPCS: 96413

== ENCOUNTER 2020-05-12 07:55 | Day surgery (SDC) | payer OTHER ==
[2020-05-12] MEDS ORDERED: Sodium Chloride 0.9% 20 ML ONE (08:25)
[2020-05-12 08:39] VITALS: BP 148/90; TEMP 97.8
== END 2020-05-12 10:05 | disposition home or self-care (01) ==
LOC: ONC/OP 07:55
PROVIDERS: ATTEND Internal Medicine Hematology & Oncology
DX: Z51.12 Encounter for antineoplastic immunotherapy (principal); C64.1 Malignant neoplasm of right kidney, except renal pelvis
CPT/HCPCS: 96413

== ENCOUNTER 2020-06-02 08:43 | Day surgery (SDC) | payer OTHER ==
[2020-06-02] MEDS ORDERED: Sodium Chloride 0.9% 20 ML ONE (08:48)
[2020-06-02 11:48] VITALS: BP 142/88; TEMP 98.2
== END 2020-06-02 13:33 | disposition home or self-care (01) ==
LOC: ONC/OP 08:43
PROVIDERS: ATTEND Internal Medicine Hematology & Oncology
DX: Z51.12 Encounter for antineoplastic immunotherapy (principal); C64.1 Malignant neoplasm of right kidney, except renal pelvis
CPT/HCPCS: 96413

== ENCOUNTER 2020-06-23 08:33 | Day surgery (SDC) | payer OTHER ==
[2020-06-23 09:00] VITALS: BP 135/86
[2020-06-23] MEDS ORDERED: Sodium Chloride 0.9% 20 ML ONE (09:42)
== END 2020-06-23 10:21 | disposition home or self-care (01) ==
LOC: ONC/OP 08:33
PROVIDERS: ATTEND Internal Medicine Hematology & Oncology
DX: Z51.12 Encounter for antineoplastic immunotherapy (principal); C64.1 Malignant neoplasm of right kidney, except renal pelvis
CPT/HCPCS: 96413

== ENCOUNTER 2020-07-15 08:31 | Day surgery (SDC) | payer OTHER ==
[2020-07-15] MEDS ORDERED: Sodium Chloride 0.9% 20 ML ONE (08:49)
[2020-07-15 09:05] VITALS: BP 150/88; TEMP 98.3
== END 2020-07-15 10:59 | disposition home or self-care (01) ==
LOC: ONC/OP 08:31
PROVIDERS: ATTEND Internal Medicine Hematology & Oncology
DX: Z51.12 Encounter for antineoplastic immunotherapy (principal); C64.1 Malignant neoplasm of right kidney, except renal pelvis
CPT/HCPCS: 96413

== ENCOUNTER 2020-08-05 07:30 | Outpatient (CLI) | payer OTHER | END 2020-08-05 07:31 | disposition home or self-care (01) | LOC: CT 07:30 | PROVIDERS: ATTEND Internal Medicine Hematology & Oncology | DX: C64.1 Malignant neoplasm of right kidney, except renal pelvis (principal); K57.30 Diverticulosis of large intestine without perforation or abscess without bleeding | CPT/HCPCS: 71250; 74150 ==

== ENCOUNTER 2020-08-05 07:34 | Day surgery (SDC) | payer OTHER ==
[2020-08-05 09:55] VITALS: BP 159/87; TEMP 97.9
== END 2020-08-05 09:58 | disposition home or self-care (01) ==
LOC: ONC/OP 07:34
PROVIDERS: ATTEND Internal Medicine Hematology & Oncology
DX: Z51.12 Encounter for antineoplastic immunotherapy (principal); C64.1 Malignant neoplasm of right kidney, except renal pelvis
CPT/HCPCS: 96413

== ENCOUNTER 2020-08-26 08:44 | Day surgery (SDC) | payer OTHER ==
[2020-08-26] MEDS ORDERED: Sodium Chloride 0.9% 20 ML ONE (09:15)
[2020-08-26 09:17] VITALS: BP 154/85; TEMP 97.8
== END 2020-08-26 10:28 | disposition home or self-care (01) ==
LOC: ONC/OP 08:44
PROVIDERS: ATTEND Internal Medicine Hematology & Oncology
DX: Z51.12 Encounter for antineoplastic immunotherapy (principal); C64.1 Malignant neoplasm of right kidney, except renal pelvis
CPT/HCPCS: 96413

== ENCOUNTER 2020-09-15 08:32 | Day surgery (SDC) | payer OTHER ==
[2020-09-15] MEDS ORDERED: Sodium Chloride 0.9% 20 ML ONE (08:49)
== END 2020-09-15 10:50 | disposition home or self-care (01) ==
LOC: ONC/OP 08:32
PROVIDERS: ATTEND Internal Medicine Hematology & Oncology
DX: Z51.12 Encounter for antineoplastic immunotherapy (principal); C64.1 Malignant neoplasm of right kidney, except renal pelvis
CPT/HCPCS: 96413

== ENCOUNTER 2020-10-06 08:48 | Day surgery (SDC) | payer OTHER ==
[2020-10-06 08:56] VITALS: BP 167/82; TEMP 97.8
== END 2020-10-06 10:06 | disposition home or self-care (01) ==
LOC: ONC/OP 08:48
PROVIDERS: ATTEND Internal Medicine Hematology & Oncology
DX: Z51.12 Encounter for antineoplastic immunotherapy (principal); C64.1 Malignant neoplasm of right kidney, except renal pelvis
CPT/HCPCS: 96413

== ENCOUNTER 2020-10-27 08:38 | Day surgery (SDC) | payer OTHER ==
[2020-10-27] MEDS ORDERED: Sodium Chloride 0.9% 20 ML ONE (09:17)
[2020-10-27 09:22] VITALS: BP 151/87; TEMP 97.8
== END 2020-10-27 09:54 | disposition home or self-care (01) ==
LOC: ONC/OP 08:38
PROVIDERS: ATTEND Internal Medicine Hematology & Oncology
DX: Z51.12 Encounter for antineoplastic immunotherapy (principal); C64.1 Malignant neoplasm of right kidney, except renal pelvis
CPT/HCPCS: 96413

== ENCOUNTER → 2020-11-17 | Day surgery (SDC) | payer OTHER ==
[~2020-11-17] MED LIST changes: +Sodium Chloride 0.9% 20 ML ONE
[2020-11-17 09:03] VITALS: BP 153/86; TEMP 98
== END ==
LOC: ONC/OP 08:25
PROVIDERS: ATTEND Internal Medicine Hematology & Oncology
DX: Z51.12 Encounter for antineoplastic immunotherapy (principal); C64.1 Malignant neoplasm of right kidney, except renal pelvis
CPT/HCPCS: 96413

== ENCOUNTER 2020-12-08 08:42 | Day surgery (SDC) | payer OTHER ==
[~2020-12-08 08:42] MED LIST changes: -Sodium Chloride 0.9% 20 ML ONE
[2020-12-08 09:01] VITALS: BP 168/90; TEMP 98.2
== END 2020-12-08 14:49 | disposition home or self-care (01) ==
LOC: ONC/OP 08:42
PROVIDERS: ATTEND Internal Medicine Hematology & Oncology
DX: Z51.12 Encounter for antineoplastic immunotherapy (principal); C64.1 Malignant neoplasm of right kidney, except renal pelvis
CPT/HCPCS: 96413

== ENCOUNTER 2021-02-25 09:28 | Outpatient (CLI) | payer OTHER | END 2021-02-25 09:29 | disposition home or self-care (01) | LOC: CT 09:28 | PROVIDERS: ATTEND Internal Medicine Hematology & Oncology | DX: C64.1 Malignant neoplasm of right kidney, except renal pelvis (principal); Z90.5 Acquired absence of kidney | CPT/HCPCS: 71250; 74177 ==

== ENCOUNTER 2023-10-12 07:59 | Outpatient (CLI) | payer MEDICARE, OTHER | END 2023-10-12 08:00 | disposition home or self-care (01) | LOC: BICCT 07:59 | PROVIDERS: ATTEND Internal Medicine Hematology & Oncology | DX: C64.1 Malignant neoplasm of right kidney, except renal pelvis (principal) | CPT/HCPCS: 71250; 74177 ==

== ENCOUNTER 2024-03-04 06:29 | Emergency (ER) | payer MEDICARE ==
[2024-03-04 07:16] LABS: #Basophils Less than 0.03 10x3/uL (0.0-0.2); %Basophils 0.4 % (0.0-1.0); %Eosinophils 1.8 % (0.0-10.0); %Lymphocytes 32.6 % (21.0-51.0); %Monocytes 9.3 % (0.0-10.0); %Neutrophils 55.5 % (42.0-75.0); Hematocrit 43.7 % (42.0-52.0); Hemoglobin 15.1 g/dL (14.0-18.0); Mean Corpuscular HGB CONC 34.6 g/dL (32.0-36.0); Mean Corpuscular Hemoglobin 31.1 pg (27.0-31.0); Mean Corpuscular Volume 90.1 fL (78.0-98.0); Mean Platelet Volume 9.2 fL (7.4-10.4); Platelet Count 208 10x3/uL (130-400); RBC Distribution Width 12.2 % (11.5-14.5); Red Blood Cell (RBC) Count 4.85 mill/uL (4.70-6.10)
[2024-03-04 07:34] LABS: ALT (SGPT) 65 U/L (8-55); AST (SGOT) 32 U/L (5-34); Albumin 4.1 g/dL (3.4-4.8); Alkaline Phosphatase 76 U/L (40-110); Anion Gap 16 mmol/L (10-20); BUN (Urea Nitrogen) 30 mg/dL (8.4-25.7); Bilirubin, Total 0.4 mg/dL (0.2-1.2); Calc. Creatinine Clearance 0 mL/min (70-130); Calcium 9.7 mg/dL (7.8-10.44); Carbon Dioxide 23 mmol/L (23-31); Chloride 103 mmol/L (98-107); Estimated GFR 40; Globulin 2.6 g/dL (2.4-3.5); Glucose 321 mg/dL (80-115); Potassium 4.3 mmol/L (3.5-5.1); Protein, Total 6.7 g/dL (5.8-8.1); Sodium 138 mmol/L (136-145)
[2024-03-04] MEDS ORDERED: Meclizine HCl 25 MG TAB ONE (07:44)
[2024-03-04] MEDS ORDERED: Ondansetron PF 4 MG/2 ML Vial ONE (07:44)
[2024-03-04] MEDS ORDERED: Boostrix 0.5 ML (Tdap) VIAL (>/=7 yrs of age) ONE (07:44)
== END 2024-03-04 09:24 | disposition home or self-care (01) ==
LOC: ERS 06:29
DX: R42 Dizziness and giddiness (principal); E11.65 Type 2 diabetes mellitus with hyperglycemia; E11.22 Type 2 diabetes mellitus with diabetic chronic kidney disease; N18.9 Chronic kidney disease, unspecified; I12.9 Hypertensive chronic kidney disease with stage 1 through stage 4 chronic kidney disease, or unspecified chronic kidney disease; Z23 Encounter for immunization; S50.312A Abrasion of left elbow, initial encounter
CPT/HCPCS: 80053; 82962; 85025; 90715; 93005; 99284; J2405; 36416

== ENCOUNTER 2024-04-08 07:34 | Outpatient (CLI) | payer MEDICARE | END 2024-04-08 07:35 | disposition home or self-care (01) | LOC: BICCT 07:34 | PROVIDERS: ATTEND Internal Medicine Hematology & Oncology | DX: C64.1 Malignant neoplasm of right kidney, except renal pelvis (principal) | CPT/HCPCS: 71250; 74177 ==